=== PATIENT | female | born 1990 | race Caucasian/White ===

== ENCOUNTER 2017-08-24 15:43 | Emergency (ER) | payer OTHER ==
[~2017-08-24] VITALS: Ht 172.7 cm; Wt 70.3 kg
[~2017-08-24 15:43] MED LIST: ALBUTEROL2.5 MG/31; ALLEGRA ALLERG180 MG PO; ATIVAN0.5 MG PO; BACTRIM DS TAB1 EACH PO; CIPROFLOXACIN500 M1 PO; CLEOCIN HCL150 MG PO; FLOVENT DISKUS50 MCG; FLOVENT HFA 1110 MCG; FLOVENT HFA 1110 MCG IH; HYDROXYZINE HCL25 M2 PO; IBUPROFEN 600600 M1 PO; IBUPROFEN 800800 M1 PO; IBUPROFEN 800800 MG PO; MIDOL CAPLET1 EAC1 PO; NAPROSYN500 MG PO; NOHOMEMEDICATIONS; NORCO 5-325 TA1 EACH PO; PENICILLIN VK500 M1 PO; PEPCID20 MG PO; PROAIR HFA8.5 GM INH; PYRIDIUM200 MG PO; TRAMADOL 50 MG50 MG PO; TRAZODONE 150150 M1 PO; TRILEPTAL150 MG PO; ULTRAM 50MG TAB50 MG PO; VENTOLIN HFA 1818 GM INH; ZOFRAN ODT4 MG PO
[2017-08-24 16:27] LABS: ABSOLUTE NEUTROPHILS 5.9 thou/uL (1.4-8.2); BASOPHILS 0.7 % (0.0-2.0); HEMATOCRIT 39.5 % (37.0-47.0); HEMOGLOBIN 13.3 gm/dL (12.0-15.0); LYMPHOCYTES 27.3 % (24.0-44.0); MCH 27.9 pg (26.0-34.0); MCHC 33.7 g/dL (28.0-37.0); MCV 82.9 fL (80.0-100.0); MONOCYTES 6.6 % (1.0-8.0); PLATELET COUNT 326 thou/uL (150-400); POLYS 61.4 % (36.0-66.0); RBC 4.77 mil/uL (4.20-5.00); RDW 15.6 % (10.5-14.5); WBC 9.7 thou/uL (4.0-11.0)
[2017-08-24 16:35] LABS: CALCIUM 8.8 mg/dL (8.5-10.1); CREATININE 0.9 mg/dL (0.6-1.0); POTASSIUM 4.1 mmol/L (3.5-5.1)
[2017-08-24] MEDS ORDERED: ZYRTEC10 M5 PO (16:59)
[2017-08-24] MEDS ORDERED: IRON325 PO (16:59)
== END 2017-08-24 17:05 | disposition home or self-care (01) ==
LOC: ER 15:43
PROVIDERS: Emergency Medicine
DX: N93.8 Other specified abnormal uterine and vaginal bleeding (principal); J45.909 Unspecified asthma, uncomplicated; F17.210 Nicotine dependence, cigarettes, uncomplicated; Z88.8 Allergy status to other drugs, medicaments and biological substances; Z91.018 Allergy to other foods